=== PATIENT | female | born 1980 | race Caucasian/White ===

== ENCOUNTER → 2016-09-26 | Outpatient (CLI) | payer OTHER ==
[~2016-09-26] MED LIST: ACYC1CAP16 PO; ADDE10 PO; DULO1CAP2 PO; DULO1CAP3 PO; ESTR0.02 T-DERMAL; ESTR42.5V VAGINAL; FLUC150T PO; FLUT50SP EACH NARE; GABA300C5 PO; GLUC500T4 PO; LEVOTAB PO; TRAM50TA PO; TRAZ50TA12 PO; VENL37.54 PO
[2016-09-26 11:14] LABS: AUTOMATED NEUTROPHIL # 2.4 TH/MM3 (1.8-7.7); BASOPHIL % 0.8 % (0.0-2.0); EOSINOPHIL # 0.2 TH/MM3 (0-0.4); EOSINOPHIL % 4.7 % (0.0-4.0); HEMATOCRIT 34.4 % (35.0-46.0); HEMO FLAGS DIFF FINAL; LYMPH % 37.9 % (9.0-44.0); LYMPHOCYTE # 1.8 TH/MM3 (1.0-4.8); MEAN CELL VOLUME 86.8 FL (80.0-100.0); MEAN CORPUSCULAR HEMOGLOBIN 28.4 PG (27.0-34.0); MEAN CORPUSCULAR HGB CONC 32.7 % (32.0-36.0); MONO % 6.5 % (0.0-8.0); NEUT % 50.1 % (16.0-70.0); PLATELET COUNT 268 TH/MM3 (150-450); RED BLOOD COUNT 3.97 MIL/MM3 (4.00-5.30); RED CELL DISTRIBUTION WIDTH 15.3 % (11.6-17.2); WHITE BLOOD COUNT 4.9 TH/MM3 (4.0-11.0)
[2016-09-26 11:21] LABS: BLOOD, URINE NEG (NEG); GLUCOSE,URINE NEG (NEG); KETONE, URINE NEG (NEG); NITRITE,URINE NEG (NEG); PH, URINE 6.5 (5.0-8.5); SQUAMOUS EPITHELIAL CELL URINE 1 /hpf (0-5); URINE COLOR YELLOW (YELLW/STRAW)
[2016-09-26 11:23] LABS: COMMENT (UR) CULT NOT INDICATED; CULTURE IF INDICATED CULT NOT INDICATED
[2016-09-26 11:37] LABS: RHEUMATOID FACTOR TRIGGER LESS THAN 10.0 IU/ML (0.0-14.9)
[2016-09-26 11:38] LABS: ALT (GPT) 27 U/L (10-53); ANION GAP 8 MEQ/L (5-15); AST (GOT) 14 U/L (15-37); BICARBONATE 27.1 MEQ/L (21.0-32.0); BLOOD UREA NITROGEN 13 MG/DL (7-18); CHLORIDE 104 MEQ/L (98-107); GLOMERULAR FILTRATION RATE 89 ML/MIN (>89); GLUCOSE,FASTING 84 MG/DL (74-99); POTASSIUM 3.9 MEQ/L (3.5-5.1); SODIUM (NA) 139 MEQ/L (136-145)
[2016-09-26 12:12] LABS: ALKALINE PHOSPHATASE 122 U/L (45-117); HDL CHOLESTEROL 56.6 MG/DL (40.0-60.0); LDL CHOLESTEROL 160 MG/DL (0-99); TOTAL BILIRUBIN ADULT 0.3 MG/DL (0.2-1.0); TRANSFERRIN IRON PROFILE 278 MG/DL (200-360)
== END ==
LOC: CLAB 09:50
PROVIDERS: ATTEND Internal Medicine Rheumatology
DX: M79.7 Fibromyalgia (principal); R53.83 Other fatigue; D64.9 Anemia, unspecified
CPT/HCPCS: 36415; 80053; 80061; 81001; 82306; 82607; 83540; 83550; 84443; 85025; 85652; 86038; 86140; 86200; 86430

== ENCOUNTER 2016-11-08 21:48 | Emergency (ER) | payer OTHER ==
[~2016-11-08] VITALS: Ht 160 cm; Wt 108.5 kg
[~2016-11-08 21:48] MED LIST changes: -DULO1CAP2 PO; -TRAM50TA PO; -VENL37.54 PO
[2016-11-08 22:10] VITALS: BP 136/77; PULSE 73; RESP 18; TEMP 97.8; O2SAT 97
[2016-11-09] MEDS ORDERED: LORazepam 2 MG/ML VIAL IV PUSH ONE (00:15)
--- NOTE | 2016-11-09 00:23 | PD ---
HPI Chief Complaint: Allergic/Adverse Reaction Time Seen by Provider: 23:58 Travel History International Travel<30 days: No Contact w/Intl Traveler<30days: No Traveled to known affect area: No History of Present Illness HPI The patient is a 36-year-old female who took a Phenergan around 7 PM tonight. About an hour and a half later she began having involuntary jerking movements in her legs and arms, felt disoriented, felt like she is going to pass out, has a left supraorbital headache of gradual onset. Mostly symptoms are going away except the jerking feeling in her arms and the headache. The patient was given the Phenergan from [facility] because of nausea and her "gallbladder sludge". She also has Zofran at home which she has not taken.She states there is no possibility of , she has had a hysterectomy. PFSH Past Medical History ADHD: Yes Cancer: No Cardiovascular Problems: No Cerebral Palsy: Yes (MILD, SURGERY X2 AT AGE 1) Diabetes: No Diminished Hearing: No Fibromyalgia: Yes Gastrointestinal Disorders: Yes (RIGHT SIDE ABD HERNIA/PELVIC AREA FROM REPAIR DONE 2004) Glaucoma: No Headaches: Yes Hepatitis: No Hiatal Hernia: No Hypertension: No Medical other: Yes (mild cerebral palsey) Neurologic: Yes (NEURALIGA, FIBROMYALGIA) Reproductive: Yes (ENDOMETROSIS SURGERY LAPOSCOPY) Respiratory: No Immunizations Current: Yes Migraines: Yes Shingles: Yes Thyroid Disease: No Influenza Vaccination: Yes ?: Not Menopausal: Yes : 6 Para: 4 Miscarriage: 2 Ovarian Cysts: Yes Past Surgical History Gynecologic Surgery: Yes (lap for endometrosis with inquinal hernia repair) Hysterectomy: Yes (01/2009) Oral Surgery: Yes (tonsillectomy and adnoidectomy) Pacemaker: No Tonsillectomy: Yes (WITH ADENOIDS) Other Surgery: Yes (tarsal tunnel RIGHT ANKLE) Social History Alcohol Use: Yes (OCC) Tobacco Use: No Substance Use: No Allergies-Medications (Allergen,Severity, Reaction): Coded Allergies: promethazine (Verified Adverse Reaction, Unknown, 11/08/16) INVOLUNTARY SPASMS Reported Meds & Prescriptions Reported Meds & Active Scripts Active Trazodone (Trazodone HCl) 50 Mg Tab 1-2 Tab PO HS PRN Estrace Vaginal (Estradiol) 0.01% Cream 1 Appl VAGINAL HS Estradiol Patch 168 HR (Estradiol) 0.025 Mg/24 Hr Patch 1 Patch T-DERMAL Q7D Remove old patch and discard when new patch being placed. Levocetirizine 5 Mg Tab 5 Mg PO DAILY Fluticasone Nasal [place] 50 Mcg/Act Naspr 50 Mcg EACH NARE BID 50 mcg/spray Duloxetine DR (Duloxetine HCl) 60 Mg Capdr 60 Mg PO DAILY Zovirax (Acyclovir) 200 Mg Cap 2 Cap PO BID Gabapentin 300 Mg Cap 300 Mg PO TID Reported Adderall (Amphetamine-Dextroamphetamine) 10 Mg Tab 10 Mg PO BID Avoid late evening doses. Space doses at least 4 to 6 hours if more than once/day dosing. Review of Systems Except as stated in HPI: all other systems reviewed are Neg Physical Exam Narrative GENERAL: The patient is alert, oriented 3 and slight apparent distress with her headache and her bilateral arm jerking. Her vital signs are normal. SKIN: Focused skin assessment warm/dry. HEAD: Atraumatic. Normocephalic. EYES: Pupils equal and round. No scleral icterus. No injection or drainage. ENT: No nasal bleeding or discharge. Mucous membranes pink and moist. NECK: Trachea midline. No JVD. CARDIOVASCULAR: Regular rate and rhythm. No murmur appreciated. RESPIRATORY: No accessory muscle use. Clear to auscultation. Breath sounds equal bilaterally. GASTROINTESTINAL: Abdomen soft, non-tender, nondistended. Hepatic and splenic margins not palpable. MUSCULOSKELETAL: No obvious deformities. No clubbing. No cyanosis. No edema. NEUROLOGICAL: Awake and alert. No obvious cranial nerve deficits. Motor grossly within normal limits. Normal speech. PSYCHIATRIC: Appropriate mood and affect; insight and judgment normal. Data Data Last Documented VS Vital Signs Date Time Temp Pulse Resp B/P (MAP) Pulse Ox O2 Delivery O2 Flow Rate FiO2 11/09/16 00:41 97.9 74 17 132/75 (94) 98 Room Air Orders Orders Complete Blood Count With Diff (11/09/16 00:15) Basic Metabolic Panel (Bmp) (11/09/16 00:15) Lorazepam Inj (Ativan Inj) (11/09/16 00:15) Ketorolac Inj (Toradol Inj) (11/09/16 01:30) Ct Brain W/O Iv Contrast(Rout) (11/09/16 01:21) Labs Laboratory Tests Test 11/09/16 00:30 White Blood Count 7.8 TH/MM3 Red Blood Count 3.86 MIL/MM3 Hemoglobin 10.9 GM/DL Hematocrit 32.9 % Mean Corpuscular Volume 85.2 FL Mean Corpuscular Hemoglobin 28.4 PG Mean Corpuscular Hemoglobin Concent 33.3 % Red Cell Distribution Width 13.2 % Platelet Count 264 TH/MM3 Mean Platelet Volume 8.8 FL Neutrophils (%) (Auto) 46.4 % Lymphocytes (%) (Auto) 40.1 % Monocytes (%) (Auto) 7.2 % Eosinophils (%) (Auto) 5.3 % Basophils (%) (Auto) 1.0 % Neutrophils # (Auto) 3.6 TH/MM3 Lymphocytes # (Auto) 3.1 TH/MM3 Monocytes # (Auto) 0.6 TH/MM3 Eosinophils # (Auto) 0.4 TH/MM3 Basophils # (Auto) 0.1 TH/MM3 CBC Comment DIFF FINAL Differential Comment Blood Urea Nitrogen 11 MG/DL Creatinine 0.66 MG/DL Random Glucose 90 MG/DL Calcium Level 9.5 MG/DL Sodium Level 138 MEQ/L Potassium Level 3.6 MEQ/L Chloride Level 102 MEQ/L Carbon Dioxide Level 30.5 MEQ/L Anion Gap 6 MEQ/L Estimat Glomerular Filtration Rate 100 ML/MIN MDM Medical Decision Making Medical Screen Exam Complete: Yes Emergency Medical Condition: Yes Medical Record Reviewed: Yes Interpretation(s) The CBC shows a hemoglobin of 10.9 and hematocrit of 32.9 but is otherwise unremarkable. The basic metabolic profile is normal. The CT brain shows no acute change. Differential Diagnosis Intracranial bleed-highly unlikely, promethazine side effect, viral syndrome, anemia, electrolyte disorder Narrative Course The patient likely has a promethazine side effect. It is now 0-26 and the patient feels much better. She will take Zofran for her nausea at home. She' ll follow-up with her primary care physician this week or early next week. Diagnosis Primary Impression: Medication side effect Additional Instructions: Discontinue the Phenergan (promethazine). He should have no problem with Zofran because this medication is unlike Phenergan chemically. Follow-up with your primary care physician this week or early next week. Med/Other Pt SpecificInfo: No Change to Meds Disposition: 01 DISCHARGE HOME Condition: Stable Robbie López MD Nov 09, 2016 00:23
[2016-11-09 00:41] VITALS: BP 132/75; PULSE 74; RESP 17; TEMP 97.9; O2SAT 98
[2016-11-09 00:48] LABS: AUTOMATED NEUTROPHIL # 3.6 TH/MM3 (1.8-7.7); BASOPHIL # 0.1 TH/MM3 (0-0.2); EOSINOPHIL # 0.4 TH/MM3 (0-0.4); EOSINOPHIL % 5.3 % (0.0-4.0); HEMATOCRIT 32.9 % (35.0-46.0); HEMO FLAGS DIFF FINAL; LYMPH % 40.1 % (9.0-44.0); LYMPHOCYTE # 3.1 TH/MM3 (1.0-4.8); MEAN CELL VOLUME 85.2 FL (80.0-100.0); MEAN CORPUSCULAR HEMOGLOBIN 28.4 PG (27.0-34.0); MEAN CORPUSCULAR HGB CONC 33.3 % (32.0-36.0); MONO % 7.2 % (0.0-8.0); NEUT % 46.4 % (16.0-70.0); PLATELET COUNT 264 TH/MM3 (150-450); RED BLOOD COUNT 3.86 MIL/MM3 (4.00-5.30); RED CELL DISTRIBUTION WIDTH 13.2 % (11.6-17.2); WHITE BLOOD COUNT 7.8 TH/MM3 (4.0-11.0)
[2016-11-09 00:53] LABS: POTASSIUM 3.6 MEQ/L (3.5-5.1)
[2016-11-09 00:56] LABS: BICARBONATE 30.5 MEQ/L (21.0-32.0)
[2016-11-09] MEDS ORDERED: KETOROLAC TROMETHAMINE 60 MG/2 ML (IM) VIAL IVP ONE (01:30)
--- NOTE | 2016-11-09 01:53 | RADRPT ---
EXAM DATE/TIME: 11/09/2016 01:28 [facility] COMPARISON: No previous studies available for comparison. INDICATIONS : Cephalgia behind left eye. RADIATION DOSE: 59.20 CTDIvol (mGy) MEDICAL HISTORY : Cerebral palsy SURGICAL HISTORY : None. ENCOUNTER: Initial ACUITY: 1 day PAIN SCALE: 8/10 LOCATION: cranial TECHNIQUE: Multiple contiguous axial images were obtained of the head. Using automated exposure control and adj ustment of the mA and/or kV according to patient size, radiation dose was kept as low as reasonably a chievable to obtain optimal diagnostic quality images. DICOM format image data is available electro nically for review and comparison. FINDINGS: CEREBRUM: The ventricles are normal for age. No evidence of midline shift, mass lesion, hemorrhage or acute in farction. No extra-axial fluid collections are seen. POSTERIOR FOSSA: The cerebellum and brainstem are intact. The 4th ventricle is midline. The cerebellopontine angle i s unremarkable. EXTRACRANIAL: The visualized portion of the orbits is intact. Visualized paranasal sinuses and mastoid air cells ar e clear. SKULL: The calvaria is intact. No evidence of skull fracture. CONCLUSION: Negative noncontrast head CT. Lauri Khan MD on November 09, 2016 at 1:50 Board Certified Radiologist. This report was verified electronically.
[2016-11-09 02:26] VITALS: BP 112/71
[2016-11-27] MEDS ORDERED: VENL37.54 PO (15:24)
[2016-11-27] MEDS ORDERED: DULO1CAP2 PO ×2 (15:24→15:37)
[2016-11-27] MEDS ORDERED: TRAM50TA PO (15:31)
[2016-11-28] MEDS ORDERED: GABA300C5 PO (20:59)
== END 2016-11-09 02:33 | disposition home or self-care (01) ==
LOC: PHED 21:48
DX: R25.8 Other abnormal involuntary movements (principal); T42.6X5A Adverse effect of other antiepileptic and sedative-hypnotic drugs, initial encounter
CPT/HCPCS: 70450; 80048; 85025; 96374; 96375; 99284; J1885; J2060

== ENCOUNTER 2017-06-04 07:03 | Emergency (ER) | payer OTHER ==
[~2017-06-04] VITALS: Ht 160 cm; Wt 114.6 kg
[~2017-06-04 07:03] MED LIST changes: +DULO1CAP2 PO; -DULO1CAP3 PO; -FLUC150T PO; -GLUC500T4 PO; +TRAM50TA PO; +VENL75CA44 PO
[2017-06-04 07:05] VITALS: BP 188/92; PULSE 90; RESP 16; TEMP 98.8; O2SAT 97
[2017-06-04] MEDS ORDERED: ONDANSETRON HCL 4 MG/2 ML VIAL IM ONE (08:00)
[2017-06-04] MEDS ORDERED: HYDROmorphone HCL PF 1 MG/ML VIAL IM ONE (08:00)
--- NOTE | 2017-06-04 08:10 | PD ---
HPI Chief Complaint: Musculoskeletal Complaint Time Seen by Provider: 07:49 Travel History International Travel<30 days: No Contact w/Intl Traveler<30days: No Traveled to known affect area: No History of Present Illness HPI This 37-year-old female is complaining of pain on the right side of her neck. She says the right side of her chest feels swollen. She has a history of a bulging disc at C3-4 and 5. She has been having migraine headache which is a throbbing headache associated with nausea and vomiting. She is nauseated now. She has a history of multiple bulging disks she had has cerebral palsy. Her regular doctor is Dr. Tompkins. She does not take any medication for her migraines. She has had surgery for tarsal tunnel on her right leg and has some chronic weakness in the leg PFSH Past Medical History ADHD: Yes Cancer: No Cardiovascular Problems: No Cerebral Palsy: Yes (MILD, SURGERY X2 AT AGE 1) Diabetes: No Diminished Hearing: No Fibromyalgia: Yes Gastrointestinal Disorders: Yes (RIGHT SIDE ABD HERNIA/PELVIC AREA FROM REPAIR DONE 2004) Glaucoma: No Headaches: Yes Hepatitis: No Hiatal Hernia: No Hypertension: No Medical other: Yes (mild cerebral palsey) Neurologic: Yes (NEURALIGA, FIBROMYALGIA) Reproductive: Yes (ENDOMETROSIS SURGERY LAPOSCOPY) Respiratory: No Immunizations Current: Yes Migraines: Yes Shingles: Yes Thyroid Disease: No Influenza Vaccination: Yes ?: Not Menopausal: Yes : 6 Para: 4 Miscarriage: 2 Ovarian Cysts: Yes Past Surgical History Gynecologic Surgery: Yes (lap for endometrosis with inquinal hernia repair) Hysterectomy: Yes Oral Surgery: Yes (tonsillectomy and adnoidectomy) Pacemaker: No Tonsillectomy: Yes (WITH ADENOIDS) Other Surgery: Yes (tarsal tunnel RIGHT ANKLE) Social History Alcohol Use: Yes (OCC) Tobacco Use: No Substance Use: No Allergies-Medications (Allergen,Severity, Reaction): Coded Allergies: promethazine (Verified Adverse Reaction, Severe, INVOLUNTARY SPASMS, ) Reported Meds & Prescriptions Reported Meds & Active Scripts Active Venlafaxine ER 24 HR (Venlafaxine HCl) 75 Mg Cap 75 Mg PO DAILY Gabapentin 300 Mg Cap 300 Mg PO TID Trazodone (Trazodone HCl) 50 Mg Tab 1-2 Tab PO HS PRN Estrace Vaginal (Estradiol) 0.01% Cream 1 Appl VAGINAL HS Levocetirizine 5 Mg Tab 5 Mg PO DAILY Zovirax (Acyclovir) 200 Mg Cap 2 Cap PO BID Review of Systems General / Constitutional: No: Fever, Chills Eyes: No: Diploplia HENT: Positive: Headaches, No: Rhinorrhea Cardiovascular: No: Chest Pain or Discomfort Respiratory: No: Cough Gastrointestinal: Positive: Nausea Genitourinary: No: Urgency, Frequency Musculoskeletal: Positive: Myalgias, Arthralgias, Weakness, Pain Skin: No Rash Hematologic/Lymphatic: No: Easy Bruising Physical Exam Narrative GENERAL: Well-developed female SKIN: Focused skin assessment warm/dry. HEAD: Atraumatic. Normocephalic. EYES: Pupils equal and round. No scleral icterus. No injection or drainage. ENT: No nasal bleeding or discharge. Mucous membranes pink and moist. NECK: Trachea midline. No JVD. Some tenderness on the right side of the neck. There is hyperalgesia skin the right upper chest on the right arm CARDIOVASCULAR: Regular rate and rhythm. No murmur appreciated. RESPIRATORY: No accessory muscle use. Clear to auscultation. Breath sounds equal bilaterally. GASTROINTESTINAL: Abdomen soft, non-tender, nondistended. Hepatic and splenic margins not palpable. MUSCULOSKELETAL: No obvious deformities. No clubbing. No cyanosis. No edema. NEUROLOGICAL: Awake and alert. No obvious cranial nerve deficits. Motor grossly within normal limits. Normal speech. PSYCHIATRIC: Appropriate mood and affect; insight and judgment normal. Data Data Last Documented VS Vital Signs Date Time Temp Pulse Resp B/P (MAP) Pulse Ox O2 Delivery O2 Flow Rate FiO2 06/04/17 07:05 98.8 90 16 188/92 (124) 97 Orders Orders Ondansetron Inj (Zofran Inj) (06/04/17 08:00) Hydromorphone Pf Inj (Dilaudid Pf Inj) (06/04/17 08:15) Ed Discharge Order (06/04/17 08:20) [facility] Medical Decision Making Medical Screen Exam Complete: Yes Emergency Medical Condition: Yes Medical Record Reviewed: Yes Differential Diagnosis Differential includes radiculopathy, migraine headache Narrative Course Patient was given injection of Dilaudid with improvement of the pain. Did offer additional pain medication she does not want narcotics at home. I will prescribe some Imitrex for her to try for her headaches that she has been having increasing headaches and does not take anything for the Diagnosis Primary Impression: Thoracic radiculopathy Additional Impression: Migraine headache Scripts Sumatriptan (Imitrex) 25 Mg Tab 25 MG PO ONCE Y for MIGRAINE HEADACHE, #10 TAB 0 Refills If a satisfactory response has not been obtained at 2 hours, a second dose may be administered Prov: Nagi Longoria MD 06/04/17 Disposition: 01 DISCHARGE HOME Condition: Stable Nagi Longoria MD Jun 04, 2017 08:10
[2017-06-04] MEDS ORDERED: HYDROmorphone HCL PF 2 MG/ML VIAL IM ONE (08:15)
[2017-06-04] MEDS ORDERED: IMIT25TA PO (08:45)
== END 2017-06-04 08:56 | disposition home or self-care (01) ==
LOC: PHEFT 07:03
DX: M54.14 Radiculopathy, thoracic region (principal); G43.909 Migraine, unspecified, not intractable, without status migrainosus; G80.9 Cerebral palsy, unspecified; M79.7 Fibromyalgia; F90.9 Attention-deficit hyperactivity disorder, unspecified type
CPT/HCPCS: 96372; 99283; J1170; J2405